=== PATIENT | female | born 1995 | race Caucasian/White ===

== ENCOUNTER 2017-09-03 07:05 | Day surgery (SDC) | payer OTHER ==
[~2017-09-03] VITALS: Ht 160 cm; Wt 82.3 kg
[~2017-09-03 07:05] MED LIST: Mirena1 EACH
== END 2017-09-03 09:41 | disposition home or self-care (01) ==
LOC: ORSCSDS 07:05
PROVIDERS: Otolaryngology
PROC: 0CBPXZZ Excision of Tonsils, External Approach (ICD-10-PCS; principal; 2017-09-03 08:15)
PROC: 0C5QXZZ Destruction of Adenoids, External Approach (ICD-10-PCS; principal; 2017-09-03 08:15)
DX: G47.33 Obstructive sleep apnea (adult) (pediatric) (principal); J35.01 Chronic tonsillitis
CPT/HCPCS: 88304; J0330; J1100; J2405; J3010; J7120

== ENCOUNTER → 2022-12-09 | Outpatient (CLI) | payer OTHER ==
[2022-12-09 10:26] LABS: BASOPHILS ABSOLUTE AUTO 0.05 K/mm3 (0.00-0.23); BASOPHILS PERCENT AUTO 1 % (0-2); EOSINOPHILS ABSOLUTE AUTO 0.11 K/mm3 (0.00-0.68); EOSINOPHILS PERCENT AUTO 1 % (0-6); Hematocrit 37.5 % (33.0-51.0); Hemoglobin 12.6 g/dL (11.5-16.0); IMMATURE GRAN ABSOLUTE AUTO 0.03 K/mm3 (0.00-0.10); IMMATURE GRAN PERCENT AUTO 0 % (0-1); LYMPHOCYTES ABSOLUTE AUTO 1.23 K/mm3 (0.84-5.20); LYMPHOCYTES PERCENT AUTO 13 % (21-46); MONOCYTES ABSOLUTE AUTO 0.56 K/mm3 (0.16-1.47); MONOCYTES PERCENT AUTO 6 % (4-13); Mean Corpuscular HGB Conc 33.6 g/dL (31.5-36.5); Mean Corpuscular Volume 92 fL (80-100); Mean Platelet Volume 10.6 fL (9.1-12.4); NEUTROPHILS ABSOLUTE AUTO 7.26 K/mm3 (1.96-9.15); NEUTROPHILS PERCENT AUTO 79 % (41-73); Platelet Count 285 K/mm3 (150-400); RDW Coefficient Variation 12.1 % (11.7-14.2); RDW Standard Deviation 40.3 fL (35.1-46.3); Red Blood Cell Count 4.07 M/mm3 (3.80-5.20); White Blood Cell Count 9.24 K/mm3 (4.00-11.30)
[2022-12-09 10:39] LABS: Albumin, Blood 4.2 g/dL (3.4-5.0); Albumin/Globulin Ratio 1.1 (0.8-1.8); Bilirubin, Total 0.3 mg/dL (0.1-1.0); Bun/Creatinine Ratio 11.1 (12.0-20.0); Calcium, Blood 9.2 mg/dL (8.5-10.1); Creatinine, Blood 0.81 mg/dL (0.40-1.00); Globulin, Blood 3.7 g/dL (2.2-4.0); Potassium, Blood 3.9 mmol/L (3.5-5.5); Total Protein, Blood 7.9 g/dL (6.4-8.2)
== END | disposition home or self-care (01) ==
LOC: LAB 10:19 → LAB SHORT 10:19
PROVIDERS: Physician Assistant
DX: R11.2 Nausea with vomiting, unspecified (principal); R82.81 Pyuria
CPT/HCPCS: 80053; 83690; 85025; 87086